=== PATIENT | male | born 1950 | race Caucasian/White ===

== ENCOUNTER 2022-11-01 23:25 | Emergency (ER) | payer BC, MEDICARE ==
[2022-11-01] MEDS ORDERED: Sodium Chloride 0.9% 10 ML Syringe FLUSH PRN (23:29)
[2022-11-01] MEDS ORDERED: Sodium Chloride 0.9% 1,000 ML IV SCH (23:30)
[2022-11-01] MEDS ORDERED: HYDROmorphone 1 MG/ML Syringe IVPUSH ONE (23:52)
[2022-11-01] MEDS ORDERED: Ketorolac 15 MG/ML SDV IVPUSH ONE (23:53)
== END 2022-11-02 03:11 | disposition home or self-care (01) ==
LOC: JD.ED 23:25
DX: N13.9 Obstructive and reflux uropathy, unspecified (principal); N40.1 Benign prostatic hyperplasia with lower urinary tract symptoms; N30.91 Cystitis, unspecified with hematuria; Z79.899 Other long term (current) drug therapy
CPT/HCPCS: 36415; 74176; 80053; 81001; 85025; 96361; 96374; 96375; 99283; 99284; A9270; G0103; J0696; J1170; J1885; J3490; J7030

== ENCOUNTER 2022-11-02 06:13 | Emergency (ER) | payer BC, MEDICARE ==
[2022-11-02] MEDS ORDERED: cefTRIAXone 1 GM Vial IM ONE (06:25)
[2022-11-02] MEDS ORDERED: Lidocaine 2% 11 ML Jelly Filled Syringe ONE (06:35)
[2022-11-02] MEDS ORDERED: Lidocaine 2% 11 ML Jelly Filled Syringe MUCMEM ONE (06:55)
== END 2022-11-02 07:56 | disposition home or self-care (01) ==
LOC: JD.ED 06:13
DX: T83.511A Infection and inflammatory reaction due to indwelling urethral catheter, initial encounter (principal); N30.90 Cystitis, unspecified without hematuria; N13.9 Obstructive and reflux uropathy, unspecified; N40.1 Benign prostatic hyperplasia with lower urinary tract symptoms; R33.8 Other retention of urine; R31.29 Other microscopic hematuria
CPT/HCPCS: 51702; 96372; 99283; 99284; A9270-GY; J0696

== ENCOUNTER 2022-11-02 17:27 | Emergency (ER) | payer MEDICARE | END 2022-11-02 19:30 | disposition home or self-care (01) | LOC: JD.ED 17:27 | DX: T83.091A Other mechanical complication of indwelling urethral catheter, initial encounter (principal) | CPT/HCPCS: 99283 ==

== ENCOUNTER 2022-11-03 05:18 | Emergency (ER) | payer MEDICARE ==
[2022-11-03] MEDS ORDERED: Lidocaine 2% 11 ML Jelly Filled Syringe MUCMEM ONE (07:47)
== END 2022-11-03 11:05 | disposition home or self-care (01) ==
LOC: JD.ED 05:18
DX: T83.091A Other mechanical complication of indwelling urethral catheter, initial encounter (principal); N40.1 Benign prostatic hyperplasia with lower urinary tract symptoms; R97.21 Rising PSA following treatment for malignant neoplasm of prostate; Z79.899 Other long term (current) drug therapy
CPT/HCPCS: 51702; 51798; 81001; 87086; 99283; A9270

== ENCOUNTER 2022-11-03 20:52 | Emergency (ER) | payer MEDICARE | END 2022-11-03 22:00 | disposition home or self-care (01) | LOC: JD.ED 20:52 | DX: T83.091A Other mechanical complication of indwelling urethral catheter, initial encounter (principal); Z79.899 Other long term (current) drug therapy | CPT/HCPCS: 99283 ==

== ENCOUNTER 2022-11-04 00:28 | Emergency (ER) | payer MEDICARE | END 2022-11-04 03:05 | disposition home or self-care (01) | LOC: JD.ED 00:28 | DX: T83.9XXA Unspecified complication of genitourinary prosthetic device, implant and graft, initial encounter (principal); R33.9 Retention of urine, unspecified | CPT/HCPCS: 99283 ==

== ENCOUNTER 2023-09-17 07:30 | Day surgery (SDC) | payer MEDICARE, OTHER, BC ==
[~2023-09-17 07:30] MED LIST: Lactated Ringers 1,000 ML IV SCH; Morphine 8 MG, EPINEPHrine 0.3 MG, Cefuroxime 750 MG, Ketorolac 30 MG, Sodium Chloride ... PRN; Sodium Chloride 0.9% 10 ML Syringe FLUSH PRN; Sodium Chloride 0.9% 10 ML Syringe FLUSH SCH
[2023-09-17] MEDS ORDERED: Propofol 200 MG/20 ML SDV ONE ×3 (07:48→10:39)
[2023-09-17] MEDS ORDERED: Midazolam 1 MG/ML 2 ML SDV ONE (07:49)
[2023-09-17] MEDS ORDERED: Vancomycin 1 GM SDV ONE (07:56)
[2023-09-17] MEDS ORDERED: Tranexamic Acid 1,000 MG/10 ML Vial ONE (07:56)
[2023-09-17] MEDS ORDERED: Ondansetron 4 MG/2 ML SDV IVPUSH PRN (08:09)
[2023-09-17] MEDS ORDERED: HYDROmorphone 0.5 MG/0.5 ML Syringe IVPUSH PRN (08:09)
[2023-09-17] MEDS ORDERED: fentaNYL 100 MCG/2 ML SDV IVPUSH PRN (08:09)
[2023-09-17] MEDS ORDERED: VANCOmycin 1.25 GM/250 ML 1.25 GM in Premix Bag 1 BAG IV ONE (08:15)
[2023-09-17] MEDS ORDERED: Dexamethasone 4 MG/ML 5 ML MDV ONE (08:33)
[2023-09-17] MEDS ORDERED: Ondansetron 4 MG/2 ML SDV ONE (08:33)
[2023-09-17] MEDS ORDERED: ceFAZolin 2 GM Vial ONE (09:53)
[2023-09-17] MEDS ORDERED: Phenylephrine 1% 10 MG/ML SDV ONE (10:42)
[2023-09-17] MEDS ORDERED: Lactated Ringers 1,000 ML IV ONE (11:00)
[2023-09-17] MEDS ORDERED: Acetaminophen/HYDROcodone 325-5 MG Tab PO PRN (12:14)
== END 2023-09-17 14:40 | disposition home or self-care (01) ==
LOC: JD.SDS 07:30
PROVIDERS: ATTEND Orthopaedic Surgery
DX: M16.12 Unilateral primary osteoarthritis, left hip (principal); N32.0 Bladder-neck obstruction; Z79.82 Long term (current) use of aspirin; Z79.899 Other long term (current) drug therapy
CPT/HCPCS: 0055T; 27130; 36415; 73501; 86850; 86900; 86901; 97116; 97161; A9270; C1713; C1776; J0171; J0690; J0697; J1100; J1885; J2250; J2270; J2371; J2405; J2704; J3370; J7030; J7120; 01214; J3490

== ENCOUNTER 2024-03-21 06:55 | Day surgery (SDC) | payer MEDICARE, OTHER ==
[~2024-03-21 06:55] MED LIST changes: -Lactated Ringers 1,000 ML IV SCH; +Midazolam 1 MG/ML 2 ML SDV ONE; +Phenylephrine 1% 10 MG/ML SDV ONE; +Propofol 200 MG/20 ML SDV ONE; +Sodium Chloride 0.9% 100 ML ONE; +ceFAZolin 2 GM Vial ONE
[2024-03-21] MEDS ORDERED: Dexamethasone 4 MG/ML 5 ML MDV ONE (06:59)
[2024-03-21] MEDS ORDERED: Ondansetron 4 MG/2 ML SDV ONE (06:59)
[2024-03-21] MEDS ORDERED: Ondansetron 4 MG/2 ML SDV IVPUSH PRN (07:21)
[2024-03-21] MEDS ORDERED: HYDROmorphone 0.5 MG/0.5 ML Syringe IVPUSH PRN (07:21)
[2024-03-21] MEDS: Lactated Ringers 1,000 ML IV SCH (07:57)
[2024-03-21] MEDS ORDERED: Lactated Ringers 1,000 ML IV ONE (08:15)
[2024-03-21] MEDS ORDERED: Propofol 200 MG/20 ML SDV ONE (08:32)
[2024-03-21] MEDS: Morphine 8 MG, EPINEPHrine 0.3 MG, Cefuroxime 750 MG, Ketorolac 30 MG, Sodium Chloride ... PRN (09:15)
[2024-03-21] MEDS: Vancomycin 1 GM SDV ONE (09:17)
[2024-03-21] MEDS: Tranexamic Acid 1,000 MG/10 ML Vial ONE (09:17)
[2024-03-21] MEDS: Triamcinolone Acetonide 40 MG/ML 1 ML SDV ONE (09:33)
[2024-03-21] MEDS: Bupivacaine 0.25% 10 ML SDV ONE (09:33)
[2024-03-21] MEDS ORDERED: Ropivacaine 0.5% 5 MG/ML 30 ML SDV ONE (09:43)
[2024-03-21] MEDS: fentaNYL 100 MCG/2 ML SDV IVPUSH PRN (09:51)
[2024-03-21] MEDS: Acetaminophen/HYDROcodone 325-5 MG Tab PO PRN (12:30)
[2024-03-21] MEDS: Acetaminophen/HYDROcodone 325-5 MG Tab PO SCH (13:47)
== END 2024-03-21 14:53 | disposition home or self-care (01) ==
LOC: JD.SDS 06:55
PROVIDERS: ATTEND Orthopaedic Surgery
DX: M17.12 Unilateral primary osteoarthritis, left knee (principal); I10 Essential (primary) hypertension; E11.9 Type 2 diabetes mellitus without complications; Z79.899 Other long term (current) drug therapy
CPT/HCPCS: 0055T; 27447; 73560; 97110; 97161; A9270; C1713; C1776; J0171; J0665; J0690; J0697; J1100; J1885; J2250; J2270; J2371; J2405; J2704; J2795; J3010; J3301; J3370; J3490; J7120; 01402; 99100

== ENCOUNTER 2025-05-10 07:00 | Day surgery (SDC) | payer MEDICARE, OTHER ==
[~2025-05-10 07:00] MED LIST changes: -Morphine 8 MG, EPINEPHrine 0.3 MG, Cefuroxime 750 MG, Ketorolac 30 MG, Sodium Chloride ... PRN; +Ondansetron 4 MG/2 ML SDV IVPUSH PRN; -Phenylephrine 1% 10 MG/ML SDV ONE; -Propofol 200 MG/20 ML SDV ONE; +Ropivacaine 0.5% 5 MG/ML 30 ML SDV ONE; -Sodium Chloride 0.9% 100 ML ONE; -ceFAZolin 2 GM Vial ONE; +fentaNYL 100 MCG/2 ML SDV IVPUSH PRN; +fentaNYL 100 MCG/2 ML SDV ONE; +propofoL 500 MG/50 ML 50 ML ONE
[2025-05-10] MEDS: oxyCODONE ER 10 MG TAB.ER PO SCH (07:54)
[2025-05-10] MEDS: Lactated Ringers 1,000 ML IV SCH (07:55)
[2025-05-10] MEDS ORDERED: ePHEDrine 50 MG/ML SDV ONE (08:28)
[2025-05-10] MEDS ORDERED: Propofol 200 MG/20 ML SDV ONE (09:23)
[2025-05-10] MEDS ORDERED: Phenylephrine 1% 10 MG/ML SDV ONE (09:29)
[2025-05-10] MEDS ORDERED: Lactated Ringers 1,000 ML ONE (09:31)
[2025-05-10] MEDS: Morphine 8 MG, EPINEPHrine 0.3 MG, Cefuroxime 750 MG, Ketorolac 30 MG, Sodium Chloride ... PRN (09:33)
[2025-05-10] MEDS: Acetaminophen/HYDROcodone 325-5 MG Tab PO PRN (12:19)
[2025-05-10] MEDS: Acetaminophen/HYDROcodone 325-5 MG Tab PO ONE (14:02)
== END 2025-05-10 14:40 | disposition home or self-care (01) ==
LOC: JD.SDS 07:00
PROVIDERS: ATTEND Orthopaedic Surgery
DX: M17.11 Unilateral primary osteoarthritis, right knee (principal); G89.18 Other acute postprocedural pain; I13.0 Hypertensive heart and chronic kidney disease with heart failure and stage 1 through stage 4 chronic kidney disease, or unspecified chronic kidney disease; I50.32 Chronic diastolic (congestive) heart failure; N18.2 Chronic kidney disease, stage 2 (mild); E78.2 Mixed hyperlipidemia; Z79.899 Other long term (current) drug therapy
CPT/HCPCS: 0055T; 27447; 64447; 73560; 97116; 97161; 97530; A9270; C1713; C1776; J0171; J0690; J0697; J1885; J2250; J2272; J2371; J2704; J2795; J3010; J3373; J7120; 01402; 99100; J3490